=== PATIENT | female | born 1940 | race African-American/Black ===

== ENCOUNTER 2022-10-07 09:30 | Emergency (ER) | payer OTHER ==
[2022-10-07] MEDS ORDERED: Sodium Chloride 0.9% 10 ML Syringe FLUSH PRN (09:37)
[2022-10-07 10:15] LABS: CHLORIDE,CL 97 mmol/L (98-107); SODIUM,NA 126 mmol/L (136-145)
[2022-10-07 10:16] LABS: ANION GAP 9.3 meq/L (7-15); ESTIMATED GFR 56 mL/min (>=60)
[2022-10-07] MEDS ORDERED: Dextrose 5%-0.9% NaCl with KCl 1,000 ML IV SCH (10:45)
[2022-10-07] MEDS ORDERED: Sodium Chloride 0.9% 1,000 ML IV ONE (11:07)
[2022-10-07] MEDS ORDERED: Potassium Chloride Riders 10 MEQ in Premix Bag 1 BAG IV ONE (11:07)
== END 2022-10-07 13:25 ==
LOC: LL.ED 09:34
DX: E87.6 Hypokalemia (principal); I67.4 Hypertensive encephalopathy; I11.0 Hypertensive heart disease with heart failure; I50.32 Chronic diastolic (congestive) heart failure; F03.90 Unspecified dementia, unspecified severity, without behavioral disturbance, psychotic disturbance, mood disturbance, and anxiety
CPT/HCPCS: 36415; 70450; 71045; 72125; 80053; 81001; 82140; 83605; 83735; 83880; 84484; 85025; 85379; 85610; 93005; 93010; 96365; 99284; 99285-25; J3480; J7030